=== PATIENT | male | born 1940 | race Caucasian/White ===

== ENCOUNTER 2020-08-11 14:17 | Inpatient (IN) | payer MEDICAID ==
[~2020-08-11] VITALS: Ht 182.9 cm; Wt 85.3 kg
[2020-08-11 15:00] VITALS: BP 174/93
--- NOTE | 2020-08-11 16:00 | NUR ---
ms rn received a new admission from [facility].79 year old male,awake,alert,oriented x4,came in w/ dx of acute appendicitis,no sob at this time,denies pain,abdomen soft, hypoactive,will monitor patient's condition.
--- NOTE | 2020-08-11 16:15 | NUR ---
ms rn patient was seen by misti Crawford, was aware of elevated b/p, with orders made and carried out.
[2020-08-11] MEDS ORDERED: ENOXAPARIN SODIUM 30 MG/0.3 ML DISP.SYRIN SQ SCH (17:30)
[2020-08-11] MEDS: ENOXAPARIN SODIUM 40 MG/0.4 ML DISP.SYRIN SQ SCH (17:30)
[2020-08-11] MEDS ORDERED: MAGNESIUM HYDROXIDE 30 ML UDC PO PRN (17:30)
[2020-08-11] MEDS ORDERED: Z GUARD REMEDY 2 OZ OINT TP PRN (17:30)
--- NOTE | 2020-08-11 17:55 | NUR ---
ms rn was seen by robin chappell, ordered to hold lovenox at this time,patient will have surgery tonight.
--- NOTE | 2020-08-11 18:00 | NUR ---
ms rn texted dr. wallis, made aware that this pt needs c/p clearance ,he will put some notes.
[2020-08-11] MEDS: PIPERACILLIN /TAZOBACTAM 3.375 G in IV D5W 50 ML IV SCH (18:15)
--- NOTE | 2020-08-11 18:20 | NUR ---
ms rn started on iv atb and hydration,all needs attended.
--- NOTE | 2020-08-11 18:55 | NUR ---
ms rn was seen by dr. huang made aware of c/p clearance not yet done,all needs attended.
--- NOTE | 2020-08-11 19:30 | NUR ---
RN ms opening notes Received Pt from morning nurse. Pt is laying in bed comfortably. Pt is alert and orientedX4. Respiration is normal in room air. No SOB. No S/S of distress noted. Vs is stable. Afebrile. Pt is going for procedure laparoscopic vs open appendectomy with Dr. Christopher. Consent is signed by Pt. Pt verbalized understanding. Pt status is NPO since yesterday. RAC# 20 is clean, intact and infuising well NS@ 75 ml/hr. Safety precautions is maintained. Bed at low position, brakes locked, side rails upX2, hob elevated and call light is within reach. Will continue to monitor.
[2020-08-11 20:00] VITALS: BP 156/92
[2020-08-11 20:05] VITALS: BP 156/92
--- NOTE | 2020-08-11 20:10 | NUR ---
right of way supervisor notes Pt is going for laparoscopic vs open appendectomy. Informed and notified Crowd Controller Dr. Mejia for clearance. Informed MD that ECHO is done at the bedside. MD informed okay to proceed. Order carried out. Charge nurse is aware and informed.
--- NOTE | 2020-08-11 20:20 | NUR ---
ship self defense system mk1 operator notes Bring Pt down with a gurney to OR with JONATHAN Armijo. OR nurse ALICIA Suarez received Pt. Gave Pt's chart to OR nurse. VS is stable. consent is signed.
[2020-08-11] MEDS ORDERED: FENTANYL PF 100MCG/2ML AMPUL ONE ×2 (20:50→23:14)
[2020-08-11] MEDS ORDERED: ROCURONIUM BROMIDE 50 MG/5 ML ONE (20:50)
[2020-08-11] MEDS ORDERED: BUPIVACAINE 0.5 % PF 150 MG/30 ML VIAL ONE (20:53)
[2020-08-11] MEDS ORDERED: LIDOCAINE HCL/PF 1% 30 ML SDV ONE (20:54)
[2020-08-11] MEDS ORDERED: GLYCOPYRROLATE 0.2 MG/ML VIAL ONE (21:01)
[2020-08-11] MEDS ORDERED: LABETALOL HCL IV 100MG VIAL ONE (21:52)
[2020-08-12] VITALS (15 sets, daily range): BP systolic 129–159; BP diastolic 73–92
--- NOTE | 2020-08-12 | NUR ---
RN notes Received Pt from OR nurse Erick RN. Pt arrived at the unit with a gurney. Pt is alert and orientedX4. Respiration on 2 L NC with O2 sat is 97%. No SOB. No S/S of distress noted. Pt is S/P laparoscopic appendectomy with abscess drainage/excision abdominal wall lesion with Dr. Christopher. Noted DEE site on left lateral lower abdomen (seroussanguinese) and two steri-strip on abdomen clean, dry and intact. VS is stable. Afebrile. Will continue to monitor.
[2020-08-12] MEDS: PIPERACILLIN /TAZOBACTAM 3.375 G in IV D5W 50 ML IV SCH ×4 (00:14→17:44)
--- NOTE | 2020-08-12 00:30 | NUR ---
RN notes Pt's resting in bed comfortably. Pt's at the bed side. VS is stable. Afebrile. No SOB. No S/S of distress noted. BP 149/88. pulse 71. temp 98.4 F orally. respiration is 18. O2 sat is 98% on 2 L NC. Abx is given. Will continue to monitor.
[2020-08-12] MEDS: IV NS 0.9% 1,000 ML IV PRN ×2 (03:05→13:57)
--- NOTE | 2020-08-12 04:30 | NUR ---
RN notes Pt is resting in bed comfortably. No SOB. Pt denies any pain or discomfort. No S/S of distress noted. VS is stable. Incentive spirometer is given to Pt. Explained risks and benefits. Pt verbalized understanding. Pt stated "I'll do it later." Noted hiccups when Pt's awake. BP 140/88. pulse 74. respiration is 18. temp 98.1 F oral. O2 sat is 98% on 2 L NC. Will continue to monitor.
--- NOTE | 2020-08-12 05:30 | NUR ---
RN notes Explained and practised the use of incentive spirometer to Pt. Explained the risks and benefits. Pt verbalized understanding and returned demonstrations.
--- NOTE | 2020-08-12 06:44 | NUR ---
RN ms closing notes Pt is resting in bed comfortably. Pt is alert and orientedX4. Respiration is normal in 2 L NC with O2 sat is 99%. No SOB. No S/S of distress noted. Vs is stable. Afebrile. Routine meds were given as ordered. RAC# 20 is clean, intact and infuising well NS@ 75 ml/hr. Two abdominal steri-strip are intact, dry and clean. Valente drain is intact and draining 50 ml seroussanguinese. Kept Pt clean, dry and comfortable. All needs met and attended. Safety precautions is maintained. Bed at low position, brakes locked, side rails upX2, urinal at the bedside, hob elevated and call light is within reach. Will endorse to morning nurse for UMER.
[2020-08-12 06:46] LABS: CALCIUM, SERUM 8.6 mg/dL (8.5-10.1); CREATININE 1.3 mg/dL (0.6-1.3); MAGNESIUM 2.8 mg/dL (1.8-2.4); PHOSPHORUS 2.7 mg/dL (2.5-4.9); POTASSIUM 4.4 mmol/L (3.5-5.1)
[2020-08-12 06:48] LABS: EOSINOPHILS % (AUTO) 0.2 % (0.0-6.0); HEMATOCRIT 43 % (39-51); HEMOGLOBIN 13.6 g/dL (13.5-17.5); LYMPHOCYTES # (AUTO) 0.8 /CMM (0.8-4.8); LYMPHOCYTES % (AUTO) 6.7 % (20.0-44.0); MEAN CORPUSCULAR HGB CONC 32 g/dl (31.0-36.0); MEAN CORPUSCULAR VOLUME 72 fL (80-96); MONOCYTES # (AUTO) 1.8 /CMM (0.1-1.30); MONOCYTES % (AUTO) 15.6 % (2.0-12.0); NEUTROPHILS % (AUTO) 77.5 % (43.0-81.0); PLATELET COUNT (AUTO) 168 /CMM (150-450); RED BLOOD CELL COUNT(AUTO) 5.93 MIL/uL (4.5-6.0); WHITE BLOOD COUNT (AUTO) 11.7 K/uL (4.3-11.0)
[2020-08-12 07:34] LABS: THYROID STIMULATING HORMONE 1.521 uIU/mL (0.358-3.74)
--- NOTE | 2020-08-12 08:12 | NUR ---
MS RN OPENING NOTE PATIENT IN BED, HOB ELEVATED, AWAKE, ALERT, ORIENTED X4, ABLE TO MAKE NEEDS KNOWN, VERBALLY RESPONSIVE. NO COMPLAINT OF PAIN OR DISCOMFORT AT THIS TIME. BREATHING EVEN AND NON-LABORED. NOTED WITH RIGHT AC IV CONNECTED TO NS AT 75ML/HR, IV PATENT, INTACT, NO S/S OF INFILTRATION. ABDOMINAL STERI STRIPS NOTED, NO BLEEDING, NO FOUL ODOR NOTED. DEE SITE ON LEFT LATERAL LOWER ABDOMEN NOTED, DRAINING SEROUS SANGUINEOUS. ALL NEEDS MET TO PROMPTLY. CALL LIGHT WITHIN EASY REACH.
[2020-08-12] MEDS: PANTOPRAZOLE 40 MG VIAL IV SCH (09:12)
[2020-08-12] MEDS: NITROGLYCERIN 30 GM TUBE TP SCH ×2 (09:37→21:23)
[2020-08-12 11:18] LABS: LYMPHOCYTES % (MANUAL) 8 % (16-48); MONOCYTES % (MANUAL) 8 % (0-11.0); NEUTROPHILS % (MANUAL) 84 (42-76)
[2020-08-12] MEDS ORDERED: METOCLOPRAMIDE HCL 10 MG TABLET PO SCH ×2 (18:00)
--- NOTE | 2020-08-12 18:42 | NUR ---
MS CLOSING NOTES RN PATIENT IN BED, AWAKE, ALERT, ORIENTED X4, ABLE TO MAKE NEEDS KNOWN, VERBALLY RESPONSIVE. DENIES PAIN OR DISCOMFORT AT THIS TIME. NO SOB, BREATHING EVEN AND NON-LABORED. NOTED WITH RIGHT AC IV ON CONTINUOS NS AT 75ML/HR, IV PATENT, INTACT, NO S/S OF INFILTRATION. ABDOMINAL STERI STRIPS NOTED, NO BLEEDING, NO S/S OF INFECTION. DEE SITE ON LEFT LATERAL LOWER ABDOMEN NOTED, COVERED WITH DRY DRESSING, DRAINING SEROUS SANGUINEOUS. ALL DUE MEDS ARE GIVEN ORDERED. ALL NEEDS AND CARE ATTENDED PROMPTLY. CALL LIGHT WITHIN EASY REACH.
--- NOTE | 2020-08-12 19:28 | NUR ---
MS RN TEXTED DR. ARMSTRONG REGARDING REGLAN ORDER, AWAITING RESPONSE.
--- NOTE | 2020-08-12 19:30 | NUR ---
MS ERROL INITIAL NOTES Received pt in his room awake and alert watching TV and at the same time at the bedside.Denies any pain or any discomfort. IVF still infusing on his right AC patent and intact. not in any discomfort or any acute distress noted. Abdomen soft and non tender with steri strips dressing dry and intact with DEE for drainage sero-sanguinous output noted. pt encourage to use the spirometer and told him the benefits of it and pt understood well. Kept him warm and comfortable at all times. will continue monitoring. place call light at reach.
[2020-08-12] MEDS: ENOXAPARIN SODIUM 40 MG/0.4 ML DISP.SYRIN SQ SCH (21:26)
[2020-08-13] MEDS: PIPERACILLIN /TAZOBACTAM 3.375 G in IV D5W 50 ML IV SCH ×4 (00:28→17:53)
[2020-08-13] MEDS: MORPHINE SULFATE INJ 2 MG/ML DISP.SYRIN IV PRN ×2 (02:15→09:10)
--- NOTE | 2020-08-13 02:15 | NUR ---
ms supervisor cd area pain mgt. Morphine 4 mg IVP administered by another nurse for his abdominal pain.
[2020-08-13 05:53] LABS: BASOPHILS % (AUTO) 0.1 % (0.0-2.0); HEMATOCRIT 38 % (39-51); HEMOGLOBIN 12.1 g/dL (13.5-17.5); LYMPHOCYTES # (AUTO) 1.3 /CMM (0.8-4.8); LYMPHOCYTES % (AUTO) 10.5 % (20.0-44.0); MEAN CORPUSCULAR HGB CONC 32 g/dl (31.0-36.0); MEAN CORPUSCULAR VOLUME 71 fL (80-96); MONOCYTES % (AUTO) 15.7 % (2.0-12.0); NEUTROPHILS # (AUTO) 9.2 /CMM (1.8-8.9); NEUTROPHILS % (AUTO) 72.7 % (43.0-81.0); PLATELET COUNT (AUTO) 179 /CMM (150-450); RED BLOOD CELL COUNT(AUTO) 5.32 MIL/uL (4.5-6.0); WHITE BLOOD COUNT (AUTO) 12.7 K/uL (4.3-11.0)
[2020-08-13] MEDS: IV NS 0.9% 1,000 ML IV PRN (06:01)
[2020-08-13] MEDS: ONDANSETRON HCL/PF 4 MG/2 ML VIAL IVP PRN (06:16)
[2020-08-13 06:30] LABS: ALBUMIN 2.1 g/dL (3.4-5.0); BILIRUBIN,TOTAL 0.6 mg/dL (0.2-1.0); CALCIUM, SERUM 8.5 mg/dL (8.5-10.1); CREATININE 1.2 mg/dL (0.6-1.3); MAGNESIUM 2.8 mg/dL (1.8-2.4); PHOSPHORUS 2.4 mg/dL (2.5-4.9); POTASSIUM 4.2 mmol/L (3.5-5.1); TOTAL PROTEIN, SERUM 6.4 g/dL (6.4-8.2)
--- NOTE | 2020-08-13 06:56 | NUR ---
ms paper tube grader closing notes pt back to rest after morning care done. Patient able to ambulate last night using walker and [employer] Attendant for safety. No signs of any distress noted. Stable throughout the night .Dressing on his surgical site still dry and intact. 10 ml output noted on his DEE . kept him warm and comfortable at all times. Pt advice to continue using spirometer and ambulate as tolerated for his early recovery. will endorse to am nurse for continuity of care.
--- NOTE | 2020-08-13 07:30 | NUR ---
ms rn received patient on bed, awake,alert,oriented x4,not in any form of distress, respirations even and unlabored,no sob noted, lungs are clear,s/p lap appendectomy, w/ susanna drain intact w/ serosanguinous output, debies pain at this time, abdomen roll tender and hypoactive, denies pain at this time,all needs attended.
[2020-08-13 08:00] VITALS: BP 153/80
--- NOTE | 2020-08-13 08:30 | NUR ---
rn was seen by adithya bill of lading clerk, patient remains on npo due to hypoactive abdomen.
[2020-08-13 08:51] LABS: LYMPHOCYTES % (MANUAL) 13 % (16-48); MONOCYTES % (MANUAL) 11 % (0-11.0); NEUTROPHILS % (MANUAL) 76 (42-76)
[2020-08-13] MEDS: NITROGLYCERIN 30 GM TUBE TP SCH ×2 (09:00→21:13)
[2020-08-13] MEDS: PANTOPRAZOLE 40 MG VIAL IV SCH (09:00)
[2020-08-13 09:04] LABS: IRON, SERUM 22 ug/dl (50-175); TOTAL IRON BINDING CAPACITY 108 ug/dl (250-450)
[2020-08-13 09:17] LABS: FERRITIN 359 ng/mL (8-388)
[2020-08-13] MEDS ORDERED: Sodium Phosphate 15 MMOL in IV NS 0.9% 245 ML IV SCH (12:00)
--- NOTE | 2020-08-13 14:00 | NUR ---
ms rn was seen by Brittany diamond nnp awaiting for orders.
[2020-08-13 16:00] VITALS: BP 166/99
--- NOTE | 2020-08-13 18:00 | NUR ---
ms rn dressing done at this time, all needs attended.
--- NOTE | 2020-08-13 18:58 | NUR ---
ms rn on bed w/ at bedside,no distress noted.
--- NOTE | 2020-08-13 19:30 | NUR ---
MS ERROL INITIAL NOTES Received report from am nurse Yessica and seen pt in bed awake and alert oriented X3, denies any discomfort , no distress noted . dressing on his surgical site dry and intact. DEE noted 1ml. patient still having "burping ". but no N/V noted. Pt remain NPO as ordered .kept him warm and comfortable at all times. will continue monitoring. place call light at reach.
[2020-08-13 20:00] VITALS: BP 157/87
[2020-08-13] MEDS: ENOXAPARIN SODIUM 40 MG/0.4 ML DISP.SYRIN SQ SCH (21:16)
[2020-08-13] MEDS: METOCLOPRAMIDE HCL 10 MG/2 ML VIAL IV SCH (21:25)
--- NOTE | 2020-08-13 21:30 | NUR ---
ms scar notes Routine meds given and Reglan IVP will be administered by nurse Chantale sow IVP as ordered. Kept him on semi fowlers position with side rails x2 up and place call light at reach. will continue monitoring. .
[2020-08-14] MEDS: PIPERACILLIN /TAZOBACTAM 3.375 G in IV D5W 50 ML IV SCH ×5 (00:11→23:40)
[2020-08-14] MEDS: METOCLOPRAMIDE HCL 10 MG/2 ML VIAL IV SCH ×4 (03:31→21:32)
[2020-08-14 06:09] LABS: BASOPHILS % (AUTO) 0.3 % (0.0-2.0); EOSINOPHILS % (AUTO) 0.6 % (0.0-6.0); HEMATOCRIT 39 % (39-51); HEMOGLOBIN 12.5 g/dL (13.5-17.5); LYMPHOCYTES # (AUTO) 1.3 /CMM (0.8-4.8); LYMPHOCYTES % (AUTO) 12.8 % (20.0-44.0); MEAN CORPUSCULAR HGB CONC 32 g/dl (31.0-36.0); MEAN CORPUSCULAR VOLUME 72 fL (80-96); MONOCYTES # (AUTO) 1.7 /CMM (0.1-1.30); MONOCYTES % (AUTO) 16.5 % (2.0-12.0); NEUTROPHILS # (AUTO) 7.3 /CMM (1.8-8.9); NEUTROPHILS % (AUTO) 69.8 % (43.0-81.0); PLATELET COUNT (AUTO) 218 /CMM (150-450); RED BLOOD CELL COUNT(AUTO) 5.48 MIL/uL (4.5-6.0); WHITE BLOOD COUNT (AUTO) 10.5 K/uL (4.3-11.0)
[2020-08-14 06:33] LABS: CALCIUM, SERUM 8.6 mg/dL (8.5-10.1); CREATININE 1.2 mg/dL (0.6-1.3); MAGNESIUM 2.8 mg/dL (1.8-2.4); PHOSPHORUS 2.3 mg/dL (2.5-4.9)
--- NOTE | 2020-08-14 07:04 | NUR ---
MS ADULT SECONDARY EDUCATION INSTRUCTOR CLOSING NOTES PT AWAKE AND ALERT AT THIS TIME ON SITTING POSITION. MORNING CARE DONE . HE VOMITED ONCE EARLIER AFTER REGLAN GIVEN BUT NOTICED PT STOP HIS BURPING. DENIES ANY PAIN . DRESSING REMAIN DRY AND INTACT. 2 ML OF OUTPUT NOTED ON HIS DEE. ALL DUE MEDS GIVEN AND ALL NEEDS MET. I ALSO TOLD TO THE PATIENT THAT I SPOKE ALSO TO DR CHOWDHURY EARLIER THAT PT SON WANTS TO TALK TO HIM AND IF POSSIBLE GIVE HIM A CALL LATER REGARDING THE PLAN FOR HIS FATHER. IVF STILL INFUSING . KEPT HIM WARM AND COMFORTABLE AT ALL TIMES. WILL ENDORSE TO AM NURSE FOR CONTINUITY OF CARE.
--- NOTE | 2020-08-14 07:51 | NUR ---
MS RN OPENING NOTES PATIENT IS A/O X 3. PATIENT IS BREATHING EVENLY AND NO SOB OR DISTRESS NOTED. PATIENT IS ON ROOM AIR. PATIENTS SURGICAL DRESSING REMAINS DRY AND INTACT. DEE DRAIN NOTED WITH 1 ML DRAINAGE. PATIENT CONTINUES TO HAVE BURPING WITH SOME NAUSEA. PATIENT WAS GIVEN REGLAN. PATIENT CONTINUES TO BE NPO PER ORDER. BED IS LOW LOCKED AND SAFETY. CALL LIGHT WITHIN REACH. WILL CONTINUE TO MONITOR THROUGHOUT SHIFT.
[2020-08-14 08:13] VITALS: BP 156/91
[2020-08-14] MEDS: PANTOPRAZOLE 40 MG VIAL IV SCH (08:45)
[2020-08-14] MEDS: NITROGLYCERIN 30 GM TUBE TP SCH ×2 (08:46→21:32)
[2020-08-14 09:10] LABS: LYMPHOCYTES % (MANUAL) 11 % (16-48); MONOCYTES % (MANUAL) 18 % (0-11.0); NEUTROPHILS % (MANUAL) 71 (42-76)
[2020-08-14 09:45] LABS: CALCIUM, SERUM 9.1 mg/dL (8.5-10.1); CREATININE 1.1 mg/dL (0.6-1.3); POTASSIUM 3.7 mmol/L (3.5-5.1)
[2020-08-14] MEDS: POTASSIUM PHOSPHATE MM 5 MMOL in IV NS 0.9% 100 ML IV SCH ×2 (10:51→13:38)
--- NOTE | 2020-08-14 15:02 | NUR ---
MS RN NOTES PATIENT HAD EPISODE OF VOMITING ABOUT 400ML OF GREEN VOMIT. PATIENT IS ON Q6HRS REGLAN AND IS RECEIVING IV FLUIDS. WILL CONTINUE TO MONITOR
[2020-08-14 15:54] VITALS: BP 167/93
--- NOTE | 2020-08-14 18:56 | NUR ---
MS RN CLOSING NOTES PATIENT IS A/O X 3. PATIENT IS BREATHING EVENLY AND NO SOB OR DISTRESS NOTED. PATIENT IS ON ROOM AIR. PATIENTS SURGICAL DRESSING REMAINS DRY AND INTACT. DEE DRAIN NOTED WITH 1 ML DRAINAGE. PATIENT CONTINUES TO HAVE BURPING WITH SOME NAUSEA. PATIENT HAD ONE EPISODE OF VOMITING DURING THE SHIFT. PATIENT WAS GIVEN REGLAN. PATIENT CONTINUES TO BE NPO PER ORDER. ALL MEDICATIONS WERE GIVEN. NEEDS WERE MET. WILL ENDORSE TO TIMBER GIRDLER.
--- NOTE | 2020-08-14 19:35 | NUR ---
MS RN OPENING NOTES PATIENT A/OX4 ABLE TO MAKE NEEDS KNOWN. ON ROOM AIR; TOLERATING WELL WITH NO SOB. DENIES PAIN OR DISCOMFORT AT THIS TIME. DEE DRAIN TO ABDOMEN; PINK DRAINAGE NOTED AT THIS TIME. ABD DRESSING KEPT C/D/I. LAC #20G S/L 1/2 NS + 10 KCL MEQ @ 75ML/HR; PATENT AND INTACT. SERENA () IS AT BEDSIDE. SAFETY MEASURES IN PLACE: BED IN LOWEST LOCKED POSITION, CALL LIGHT WITHIN REACH, BED ALARMS ON, SIDE RAILS UPX2. WILL CONTINUE PLAN OF CARE.
[2020-08-14 20:00] VITALS: BP 156/80
[2020-08-14] MEDS: ONDANSETRON HCL/PF 4 MG/2 ML VIAL IVP PRN (21:32)
--- NOTE | 2020-08-14 21:32 | NUR ---
MS RN NOTES - EMESIS PATIENT NOTED WITH N/V X1. GREEN EMESIS OF 200ML NOTED. ADMINISTERED ZOFRAN ORDERED. WILL CONTINUE TO ASSES FOR N/V.
[2020-08-14] MEDS: ENOXAPARIN SODIUM 40 MG/0.4 ML DISP.SYRIN SQ SCH (21:36)
[2020-08-15] MEDS: METOCLOPRAMIDE HCL 10 MG/2 ML VIAL IV SCH ×4 (03:42→21:52)
[2020-08-15] MEDS: PIPERACILLIN /TAZOBACTAM 3.375 G in IV D5W 50 ML IV SCH ×4 (05:07→23:32)
--- NOTE | 2020-08-15 06:28 | NUR ---
MS RN CLOSING NOTES PATIENT A/OX4 ABLE TO MAKE NEEDS KNOWN. ON ROOM AIR; TOLERATING WELL WITH NO SOB. DENIES PAIN OR DISCOMFORT AT THIS TIME. DEE DRAIN TO ABDOMEN; PINK DRAINAGE NOTED AND HAD 10ML DRAIN OUTPUT DURING SHIFT. ABD DRESSING KEPT C/D/I. RAC #20G 1/2 NS + 10 KCL MEQ @ 75ML/HR; PATENT AND INTACT. SAFETY MEASURES IN PLACE: BED IN LOWEST LOCKED POSITION, CALL LIGHT WITHIN REACH, SIDE RAILS UPX2. WILL ENDORSE PLAN OF CARE TO ONCOMING MORNING RN.
[2020-08-15 06:32] LABS: BASOPHILS % (AUTO) 0.1 % (0.0-2.0); EOSINOPHILS % (AUTO) 0.3 % (0.0-6.0); HEMATOCRIT 38 % (39-51); HEMOGLOBIN 12.1 g/dL (13.5-17.5); LYMPHOCYTES # (AUTO) 1.2 /CMM (0.8-4.8); LYMPHOCYTES % (AUTO) 13.8 % (20.0-44.0); MEAN CORPUSCULAR HGB CONC 32 g/dl (31.0-36.0); MEAN CORPUSCULAR VOLUME 71 fL (80-96); MONOCYTES # (AUTO) 1.6 /CMM (0.1-1.30); MONOCYTES % (AUTO) 18.2 % (2.0-12.0); NEUTROPHILS % (AUTO) 67.6 % (43.0-81.0); PLATELET COUNT (AUTO) 228 /CMM (150-450); RED BLOOD CELL COUNT(AUTO) 5.28 MIL/uL (4.5-6.0); WHITE BLOOD COUNT (AUTO) 8.8 K/uL (4.3-11.0)
[2020-08-15 07:09] LABS: MAGNESIUM 2.6 mg/dL (1.8-2.4); PHOSPHORUS 2.9 mg/dL (2.5-4.9)
--- NOTE | 2020-08-15 07:30 | NUR ---
[facility] TELE NOTE RECEIVED REPORT FROM ALICIA CHEN. PATIENT IN BED A/OX4. NO S/S OF RESPIRATORY DISTRESS. COMPLAINTS OF ABDOMINAL PAIN 10/15. PLAN TO ADMINISTER PRN MEDICATION. DEE DRAIN IN PLACE DRAINING YELLOW AND RED DISCHARGES. ABDOMINAL STERI STRIP INTACT AND DRY. SAFETY PRECAUTIONS IN PLACE: BED IN LOWEST POSITION, BRAKES LOCKED, CALL LIGHT WITHIN REACH WILL CONTINUE TO ASSESS/MONITOR.
[2020-08-15 08:00] VITALS: BP 163/98
[2020-08-15] MEDS: PANTOPRAZOLE 40 MG VIAL IV SCH (08:33)
[2020-08-15] MEDS: NITROGLYCERIN 30 GM TUBE TP SCH ×2 (08:40→21:36)
[2020-08-15] MEDS: MORPHINE SULFATE INJ 2 MG/ML DISP.SYRIN IV PRN (13:18)
--- NOTE | 2020-08-15 13:25 | NUR ---
ANALILIA RN NOTES PATIENT COMPLAINTS OF PAIN 12/15 AFTER DEE DRAIN REMOVAL. GIVEN PRN MORPHINE.
--- NOTE | 2020-08-15 14:42 | NUR ---
MS RN NOTES 1500 POTASSIUM IV BAG HELD BECAUSE MORNING BAG WAS HANGED AT 1016 AM WHEN PROVIDED BY PHARMACY AND IS STILL RUNNING.
[2020-08-15 16:00] VITALS: BP 163/84
--- NOTE | 2020-08-15 18:43 | NUR ---
MEDS[facility]G RN CLOSING NOTE PATIENT IN THE CHAIR, A/OX4. IS IN THE ROOM WITH THE PATIENT. NO S/S OF DISTRESSED. NO C/O OF PAIN AT THE MOMENT. PATIENT ABLE TO MAKE NEEDS KNOWN. ALL NEEDS ATTENDED. ALL SCHEDULED MEDS ADMINISTERED. PRN PAIN MED ADMINISTERED. SAFETY PRECAUTIONS KEPT IN PLACE THE WHOLE SHIFT. NO SIGNIFICANT CHANGES FROM THE LAST SHIFT. DEE DRAIN REMOVED BY ANGELICA PHELAN. WILL ENDORSE PLAN OF CARE TO ONCOMING NIGHT RN.
--- NOTE | 2020-08-15 19:18 | NUR ---
MS RN OPENING NOTES PATIENT A/OX4 ABLE TO MAKE NEEDS KNOWN. ON ROOM AIR; TOLERATING WELL WITH NO SOB. DENIES PAIN OR DISCOMFORT AT THIS TIME. S/P DEE DRAIN; ABD DRESSING KEPT C/D/I. RAC #20G S/L 1/2 NS + 10 KCL MEQ @ 75ML/HR; PATENT AND INTACT. SERENA () IS AT BEDSIDE. SAFETY MEASURES IN PLACE: BED IN LOWEST LOCKED POSITION, CALL LIGHT WITHIN REACH, BED ALARMS ON, SIDE RAILS UPX2. WILL CONTINUE PLAN OF CARE.
[2020-08-15 20:00] VITALS: BP 159/91
[2020-08-15] MEDS: ENOXAPARIN SODIUM 40 MG/0.4 ML DISP.SYRIN SQ SCH (21:35)
[2020-08-16] MEDS: METOCLOPRAMIDE HCL 10 MG/2 ML VIAL IV SCH ×2 (02:07→08:27)
[2020-08-16] MEDS: PIPERACILLIN /TAZOBACTAM 3.375 G in IV D5W 50 ML IV SCH (05:11)
--- NOTE | 2020-08-16 05:41 | NUR ---
MS RN CLOSING NOTES PATIENT A/OX4 ABLE TO MAKE NEEDS KNOWN. ON ROOM AIR; TOLERATING WELL WITH NO SOB. DENIES PAIN OR DISCOMFORT AT THIS TIME. S/P DEE DRAIN; ABD DRESSING KEPT C/D/I. RAC #20G S/L 1/2 NS + 10 KCL MEQ @ 75ML/HR; PATENT AND INTACT. SAFETY MEASURES IN PLACE: BED IN LOWEST LOCKED POSITION, CALL LIGHT WITHIN REACH, BED ALARMS ON, SIDE RAILS UPX2. WILL ENDORSE PLAN OF CARE TO ONCOMING MORNING RN.
[2020-08-16 06:05] LABS: CALCIUM, SERUM 8.4 mg/dL (8.5-10.1); CREATININE 1.1 mg/dL (0.6-1.3); POTASSIUM 3.5 mmol/L (3.5-5.1)
--- NOTE | 2020-08-16 07:52 | NUR ---
MS RN OPENING NOTE PATIENT IS IN ROOM RESTING, PATIENT IS IN NO ACUTE DISTRESS. PATIENT IS ON ROOM AIR TOLERATING WELL. NO SOB NOTED. SAFETY PRECAUTIONS ARE ON, BED IS LOCKED AND IN THE LOWEST POSITION, SIDE RAILS ARE UP, CALL LIGHT WITHIN REACH. WILL CONTINUE TO MONITOR CLOSELY THROUGHOUT THE SHIFT.
[2020-08-16 08:00] VITALS: BP 158/89
[2020-08-16] MEDS: PANTOPRAZOLE 40 MG VIAL IV SCH (08:27)
[2020-08-16 08:34] VITALS: BP 158/89
[2020-08-16] MEDS: NITROGLYCERIN 30 GM TUBE TP SCH (08:34)
[2020-08-16] MEDS ORDERED: METR500T PO (08:59)
[2020-08-16] MEDS ORDERED: LEVO500T90 PO (09:00)
--- NOTE | 2020-08-16 14:14 | NUR ---
MS SIDE PIECE COVERER NOTE PATIENT IS IN NO ACUTE DISTRESS. PATIENT IS STABLE TO BE DISCHARGED. PATIENT NEEDS WERE MET DURING THE STAY. DISCHARGE EDUCATION PROVIDED TO PATIENT AND FAMILY. PATIENT AND FAMILY VERBALIZED UNDERSTANDING. PATIENTS IV LINE AND ID BAND REMOVED. PATIENT SKIN IS INTACT. PATIENT TRANSPORTED VIA WHEELCHAIR. PATIENT PICKED UP BY FAMILY. MD IS AWARE OF DISCHARGE.
[2020-08-17] MEDS ORDERED: PANTOPRAZOLE 40 MG/PACK PACK GT SCH (07:30)
== END 2020-08-16 13:28 | disposition home or self-care (01) | DRG 227 ==
LOC: MED 16:12
PROVIDERS: ADMIT Nurse Practitioner Acute Care; ATTEND Internal Medicine
PROC: 0DTJ0ZZ Resection of Appendix, Open Approach (ICD-10-PCS; principal; 2020-08-11)
PROC: 0WQF0ZZ Repair Abdominal Wall, Open Approach (ICD-10-PCS; 2020-08-11)
PROC: 0WBF0ZZ Excision of Abdominal Wall, Open Approach (ICD-10-PCS; 2020-08-11)
DX: K35.33 Acute appendicitis with perforation, localized peritonitis, and gangrene, with abscess (principal); E83.39 Other disorders of phosphorus metabolism; K56.7 Ileus, unspecified; I10 Essential (primary) hypertension; K43.9 Ventral hernia without obstruction or gangrene; K66.0 Peritoneal adhesions (postprocedural) (postinfection); N40.0 Benign prostatic hyperplasia without lower urinary tract symptoms; R79.89 Other specified abnormal findings of blood chemistry
CPT/HCPCS: 36415; 74018; 80048-TC; 80053-TC; 80061-TC; 82728-TC; 83540-TC; 83605-TC; 83735-TC; 84100-TC; 84443-TC; 85025-TC; 85610-TC; 86850-TC; 87081-TC; 93307-TC; 97112-TC; 97116-TC; 97530-TC; A9563; C9113; G0378; J1650; J2270; J2405; J2543; J2704; J2765; J3010; J3480; J3490; J7030; J7050; J7060